=== PATIENT | female | born 1990 | race Caucasian/White ===

== ENCOUNTER 2024-02-01 00:59 | Emergency (ER) | payer BC ==
[2024-02-01 01:05] VITALS: BP 99/67; PULSE 75; RESP 16; TEMP 98.6; BMI 28.2
[2024-02-01] MEDS ORDERED: ACETAMINOPHEN 325 MG TABLET (FP) ONE ×2 (01:43→01:44)
[2024-02-01] MEDS: ACETAMINOPHEN 325 MG TABLET (FP) PO ONE (01:46)
== END 2024-02-01 02:48 | disposition home or self-care (01) ==
LOC: JER 00:59
DX: M25.572 Pain in left ankle and joints of left foot (principal); X50.1XXA Overexertion from prolonged static or awkward postures, initial encounter
CPT/HCPCS: 73610-TC-LT-FY; 99283-25